=== PATIENT | male | born 1970 | race Hispanic/Latino ===

== ENCOUNTER → 2022-11-13 | Outpatient (CLI) | payer OTHER | END | disposition home or self-care (01) | LOC: SHCH 10:43 | PROVIDERS: ATTEND Internal Medicine Cardiovascular Disease | DX: I35.0 Nonrheumatic aortic (valve) stenosis (principal); I48.92 Unspecified atrial flutter | CPT/HCPCS: 93306 ==

== ENCOUNTER 2022-12-05 09:02 | Day surgery (SDC) | payer OTHER ==
[2022-12-04 11:44] LABS: BASOPHILS % (AUTO) 0.5 % (0.0-5.0); EOSINOPHILS % (AUTO) 2.3 % (0.0-8.0); HEMATOCRIT 40.4 % (42-54); LYMPHOCYTES % (AUTO) 22.5 % (21.0-51.0); MEAN CORPUSCULAR HEMOGLOBIN 28.2 pg (27.0-33.0); MEAN CORPUSCULAR HGB CONC 30.4 g/dL (32.0-36.0); MEAN CORPUSCULAR VOLUME 92.7 fL (79-99); MONOCYTES % (AUTO) 7.5 % (3.0-13.0); NEUTROPHILS % (AUTO) 66.7 % (40.0-77.0); PLATELET COUNT (AUTO) 263 K/uL (130-400); RED BLOOD CELL COUNT(AUTO) 4.36 MIL/uL (4.50-6.20); RED CELL DISTRIBUTION WIDTH 14.8 % (11.0-15.5); WHITE BLOOD COUNT (AUTO) 6.2 K/uL (4.8-10.8)
[2022-12-04 11:53] LABS: CREATININE 0.8 mg/dL (0.5-1.5); POTASSIUM 4.1 mmol/L (3.5-5.1)
[2022-12-04 11:56] LABS: INR 0.98 (0.85-1.15); PROTHROMBIN TIME 10.7 SEC (9.6-11.6)
[2022-12-04 11:57] LABS: PARTIAL THROMBOPLASTIN TIME 30.5 SEC (26.3-35.5)
[2022-12-04 11:59] VITALS: BP 116/95
[2022-12-05] VITALS (22 sets, daily range): BP systolic 112–141; BP diastolic 77–106
[~2022-12-05] VITALS: Ht 190.5 cm; Wt 140.5 kg
[~2022-12-05 09:02] MED LIST: EMPAGLIFLOZIN PO; FERS325 PO; INSU100V37 SQ; METFORMIN PO; METO-391 PO; RIVA20TA PO; VERA180T60 PO
[2022-12-05] MEDS ORDERED: 0.9%NACL 1000ML 1,000 ML IV ONE (09:25)
[2022-12-05] MEDS ORDERED: FLUMAZENIL 0.1MG/1ML 5ML VIAL IV ONE (10:03)
[2022-12-05] MEDS ORDERED: LIDOCAINE HCL 2% VISCOUS 15 ML UDCUP ONE (10:03)
[2022-12-05] MEDS ORDERED: NALOXONE HCL 0.4 MG/1 ML ML ONE (10:04)
[2022-12-05] MEDS ORDERED: MIDAZOLAM HCL 1 MG/ML 2ML VIAL ONE ×4 (10:04→14:53)
[2022-12-05] MEDS ORDERED: FENTANYL CITRATE PF 50 MCG/1 ML 2ML VIAL ONE (10:04)
[2022-12-05] MEDS ORDERED: LIDOCAINE HCL 1% MDV 50ML VIAL ONE (14:07)
[2022-12-05] MEDS ORDERED: MEPERIDINE-PF 25 MG/ML SYG ONE ×3 (14:07→14:53)
[2022-12-05] MEDS ORDERED: HEPARIN 10,000 UNIT/10ML (1,000 UNIT/ML) VIAL ONE (14:07)
== END 2022-12-05 19:00 | disposition home or self-care (01) ==
LOC: DAH 09:02
PROVIDERS: ATTEND Internal Medicine Cardiovascular Disease
DX: I48.3 Typical atrial flutter (principal); I08.1 Rheumatic disorders of both mitral and tricuspid valves; F17.290 Nicotine dependence, other tobacco product, uncomplicated; E11.9 Type 2 diabetes mellitus without complications; E66.9 Obesity, unspecified; Z79.01 Long term (current) use of anticoagulants; Z79.899 Other long term (current) drug therapy; Z90.49 Acquired absence of other specified parts of digestive tract; Z98.890 Other specified postprocedural states; Z79.4 Long term (current) use of insulin; Z79.84 Long term (current) use of oral hypoglycemic drugs; Z68.39 Body mass index [BMI] 39.0-39.9, adult
CPT/HCPCS: 80048; 85025; 85610; 85730; 36415; 93005; 93653; 82948 ×2; 93325; 93312; C1894 ×2; C1732 ×2; C1893; A4649 ×2; J3010; J7030; J1644 ×2; J2250 ×3; J2175 ×3; J3490; A4615; A4215; A4657; A7002; A4222; A4221; A4663; A4216; A4606; A4223 ×3; 96374; 99156; 99157; J2310